=== PATIENT | male | born 1960 | race Caucasian/White ===

== ENCOUNTER → 2017-04-04 | Outpatient (CLI) | payer MEDICARE, MEDICAID ==
[~2017-04-04] MED LIST: ACTOS45 MG PO; AMMONIUM LACTA225 GM TP; AUGMENTIN 250250 MG PO; CLARITIN DPS10 MG PO; DIFLUCAN DPS150 MG PO; GLUCOPHAGE-DPS500 MG PO; KENALOG OINT. 015 GM TP; LASIX DPS20 MG PO; LOPRESSOR DPS50 MG PO; MAALOX DPS30 ML PO; MONTELUKAST SOD10 MG PO; NYAMYC60 GM TP; NYSTATIN CREAM15 GM TP; PATANOL 0.1%5 ML; PROVENTIL2.5 MG/3 M IH; SYMBICORT 80-10.2 GM IH; TEMOVATE O.05%15 GM TP; TYLENOL DPS325 MG PO
--- NOTE | ~2017-04-04 | ECH ---
Transthoracic Echocardiography Report (TTE) Demographics Patient Name CÉSAR CERON Date of Study 04/04/2017 Patient Number [id number] Visit Number [id number] Date of 1960 Room Number Accession Number [id number] Gender Male Age 56 year(s) Referring [employer] [employer] Analyst Lizbeth Cesar [facility] Physician Heber Rogers Physician Interpreting Sae Hansen MD Jig Grinder Physician Supervising Ordering Physician Heber Rogers MD/MLP [facility] [employer] Conclusions Summary Technically difficult exam with apical views off axis. The estimated left ventricular ejection fraction is 60-65%. Mild tricuspid regurgitation by color Doppler. There is mild pulmonary hypertension. The pulmonary pressure (RVSP) is 41 mmHg. The ascending aorta appears moderately dilated. The maximum diameter measures 4.3 cm. Procedure Type of Study TTE procedure:Echo Complete SF. Procedure Date Date: 04/04/2017 Start: 11:26 AM Technical Quality: Limited visualization due to body habitus. Indications:Shortness of breath. Appropriate Use Criteria: 9 Height: 67 inches Weight: 420 pounds BSA: 2.77 m Rhythm: Within normal limits HR: 89 bpm BP: 133/71 mmHg M-Mode/2D Measurements LV Diastolic Dimension: 5.57 cm LV Systolic Dimension: 3.07 cm LV Septum Diastolic: 1.05 cm LV PW Diastolic: 1.22 cm AO Root Dimension: 2.38 cm Cardiac Output: 9.97 l/min LA Dimension: 4.67 cm Cardiac Index: 3.6 l/min*m RV Diastolic Dimension: 3.28 cm LA volume index: 27 ml/m LVOT: 2.35 cm LVOT VTI: 25.83 cm LV Stroke volume: 111.98 ml LV Stroke volume index: 40.43 ml/m Doppler Measurements AV Peak Velocity: 1.7 m/s MV Peak E-Wave: 1.54 m/s AV Peak Gradient: 11.56 mmHg MV Peak A-Wave: 1.38 m/s AV Mean Gradient: 6.6 mmHg MV E/A Ratio: 1.12 LVOT Peak Velocity: 0.97 m/s MV P1/2t: 54.2 msec AV Area (Continuity):3.19 cm MV Deceleration Time: 186.8 msec TR Velocity:2.98 m/s MV Area (PHT): 4.06 cm TR Gradient:35.57 mmHg PV Peak Velocity: 1.55 m/s Estimated RAP:5 mmHg PV Peak Gradient: 9.59 mmHg Estimated RVSP: 41 mmHg Estimated PASP: 40.57 mmHg Findings Left Ventricle The left ventricle is normal in size . Diastolic assessment reveals normal relaxation. Right Ventricle Right ventricle not well visualized. Left Atrium The left atrium is mildly dilated. Right Atrium RIght atrium not well visualized. Mitral Valve Normal mitral valve structure and function. Aortic Valve The aortic valve is mildly sclerotic. Tricuspid Valve Normal tricuspid valve structure and function. Mild tricuspid regurgitation by color Doppler. There is mild pulmonary hypertension. The pulmonary pressure (RVSP) is 41 mmHg. Pulmonic Valve Normal pulmonic valve structure and function. Pericardial Effusion No evidence of pericardial effusion. Miscellaneous The ascending aorta appears moderately dilated. The maximum diameter measures 4.3 cm. Pleural Effusion No evidence of pleural effusion. Signature
== END | disposition home or self-care (01) ==
LOC: CARD 10:35
DX: R06.02 Shortness of breath (principal); I07.1 Rheumatic tricuspid insufficiency; I27.2 Other secondary pulmonary hypertension; I77.819 Aortic ectasia, unspecified site